=== PATIENT | female | born 1960 | race Two or more races ===

== ENCOUNTER 2018-12-24 13:39 | Emergency (ER) | payer MEDICAID, OTHER ==
[~2018-12-24] VITALS: Ht 157.5 cm; Wt 78.5 kg
[2018-12-24 14:46] LABS: Basophils # (auto) 0 uL; Basophils % (auto) 0.3 % (0.0-2.0); Eosinophils # (auto) 0.1 uL; Eosinophils % (auto) 0.5 % (0.0-7.0); Hematocrit 41.5 % (36.0-46.0); Lymphocytes % (auto) 9.4 % (10.0-50.0); Mean Corpuscular Hemoglobin 29.8 pg (28.0-32.0); Mean Corpuscular Hgb Conc. 33.7 g/dL (32.0-36.0); Mean Corpuscular Volume 88.5 fL (80.0-100.0); Monocytes # (auto) 0.6 uL; Neutrophils # (auto) 8.5 uL; Neutrophils % (auto) 83.8 % (37.0-80.0); Platelet Count (auto) 254 10^3/uL (140-450); Red Blood Cells 4.69 10^6/uL (4.0-5.20); Red Cell Distribution Width 13.4 % (11.8-14.3); White Blood Cell 10.1 10^3/uL (4.4-10.8)
[2018-12-24 15:03] LABS: Albumin 3.6 g/dL (3.4-5.0); BUN/Creatinine Ratio 27.8; Calcium 8.7 mg/dL (8.5-10.1)
[2018-12-24 15:06] LABS: Bilirubin, Total 0.3 mg/dL (0.2-1.0); Total Protein 7.5 g/dL (6.4-8.2)
[2018-12-24 16:08] VITALS: BP 110/68
== END 2018-12-24 16:10 | disposition home or self-care (01) ==
LOC: EDBD 13:39 → ER 13:39
DX: J02.9 Acute pharyngitis, unspecified (principal)
CPT/HCPCS: 36415; 80053; 85025